=== PATIENT | male | born 1950 | race Caucasian/White ===

== ENCOUNTER 2017-05-12 18:02 | Emergency (ER) | payer OTHER ==
[~2017-05-12] VITALS: Ht 160 cm; Wt 95.3 kg
--- NOTE | ~2017-05-12 | EKG ---
[address] [address] ELECTROCARDIOGRAM REPORT Name: ELSI DIOR Room #: DEP [facility]#: [id number] Admission: 05/12/17 Attend Phys: Discharge: 05/12/17 Date of : 46 Report #: [id number] THIS REPORT FOR: //name// [facility] ED Test Date: 2017-05-12 Test Time: 18:04:34 Pat Name: ELSI DIOR Department: Room: Gender: M Audio Visual Secretary: [facility] : 1950 Requested By: Shailesh Donohue Order Number: [id number] MD: Faustino Luz Measurements Intervals [place] Rate: 87 P: SC: QRS: 27 QRSD: 93 T: 3 QT: 358 QTc: 431 Interpretive Statements Atrial fibrillation Otherwise no significant abnormality No previous ECG available for comparison Electronically Signed On 05-13-2017 8:31:04 SUB ASSEMBLY TEAM WORKER by Faustino Luz [email or web address] <ELECTRONICALLY SIGNED> By: Faustino Luz MD, [facility] 05/13/17 0831 1804 1804 Faustino Luz MD, FAC /EPI
[2017-05-12] MEDS ORDERED: PRINIVIL20 M1 PO (18:18)
[2017-05-12] MEDS ORDERED: COUMADIN 5 MG TA5 M1 PO (18:18)
[2017-05-12] MEDS ORDERED: [UNRECOGNIZED DRUG - OTHER] (18:20)
[2017-05-12] MEDS ORDERED: CARDIA (18:20)
[2017-05-12 19:14] LABS: ABSOLUTE NEUTROPHILS 4.8 thou/uL (1.4-8.2); BASOPHILS 0.6 % (0.0-2.0); EOSINOPHILS 0.8 % (0.0-3.0); HEMATOCRIT 43.5 % (42.0-52.0); HEMOGLOBIN 14.8 gm/dL (14.0-18.0); LYMPHOCYTES 20.6 % (24.0-44.0); MCH 31.6 pg (26.0-34.0); MCHC 33.9 g/dL (28.0-37.0); MCV 93.1 fL (80.0-100.0); MONOCYTES 5.6 % (1.0-8.0); PLATELET COUNT 267 thou/uL (150-400); POLYS 72.4 % (36.0-66.0); RBC 4.67 mil/uL (4.50-6.00); RDW 14.6 % (10.5-14.5); WBC 6.7 thou/uL (4.0-11.0)
[2017-05-12 19:21] LABS: ANION GAP 13 mmol/L (7-16); BUN 12 mg/dL (7-18); CALCIUM 8.4 mg/dL (8.5-10.1); CHLORIDE 95 mmol/L (98-107); CO2 21 mmol/L (21-32); CREATININE 0.7 mg/dL (0.7-1.3); GLUCOSE 93 mg/dL (74-106); POTASSIUM 3.9 mmol/L (3.5-5.1); SODIUM 129 mmol/L (136-145)
[2017-05-12 19:23] LABS: URINE BILIRUBIN NEGATIVE (Negative); URINE BLOOD NEGATIVE (Negative); URINE CLARITY CLEAR; URINE COLOR YELLOW; URINE GLUCOSE-RANDOM* NEGATIVE (Negative); URINE KETONES NEGATIVE (Negative); URINE LEUKOCYTES-REFLEX NEGATIVE (Negative); URINE NITRITE-REFLEX NEGATIVE (Negative); URINE PROTEIN (DIPSTICK) NEGATIVE (Negative); URINE SPECIFIC GRAVITY <= 1.005 (1.005-1.035); URINE UROBILINOGEN 0.2 E.U./dl (0.2-1.0)
[2017-05-12 19:29] LABS: TROPONIN-I < 0.04 ng/mL (<0.06)
== END 2017-05-12 21:06 | disposition home or self-care (01) ==
LOC: ER 18:02
PROVIDERS: Emergency Medicine
DX: E86.0 Dehydration (principal); R53.1 Weakness

== ENCOUNTER 2019-04-13 10:26 | Inpatient (IN) | payer OTHER ==
[~2019-04-13] VITALS: Ht 160 cm; Wt 81.2 kg
[~2019-04-13 10:26] MED LIST: CARDIA; COUMADIN 5 MG TA5 M1 PO; PRINIVIL20 M1 PO; [UNRECOGNIZED DRUG - OTHER]
[2019-04-13 10:38] VITALS: BP 122/56
[2019-04-13 11:06] LABS: ABSOLUTE NEUTROPHILS 8.6 thou/uL (1.4-8.2); BASOPHILS 0.5 % (0.0-2.0); EOSINOPHILS 0.2 % (0.0-3.0); HEMATOCRIT 45.6 % (42.0-52.0); HEMOGLOBIN 15.6 gm/dL (14.0-18.0); LYMPHOCYTES 8.5 % (24.0-44.0); MCH 32.5 pg (26.0-34.0); MCHC 34.3 g/dL (28.0-37.0); MCV 94.8 fL (80.0-100.0); PLATELET COUNT 346 thou/uL (150-400); POLYS 83.8 % (36.0-66.0); RBC 4.81 mil/uL (4.50-6.00); WBC 10.3 thou/uL (4.0-11.0)
[2019-04-13] MEDS ORDERED: FUROSEMIDE 40 M40 MG PO (11:10)
[2019-04-13] MEDS ORDERED: FISH OIL 1,0001 EAC9 PO (11:10)
[2019-04-13] MEDS ORDERED: KLOR-CON M2020 MEQ PO (11:10)
[2019-04-13] MEDS ORDERED: LIPITOR80 MG PO (11:11)
[2019-04-13] MEDS ORDERED: COUMADIN 5 MG TA5 M1 PO (11:11)
[2019-04-13] MEDS ORDERED: DILTIAZEM ER180 M2 PO (11:11)
[2019-04-13 11:13] LABS: ANION GAP 13 mmol/L (7-16); BUN 9 mg/dL (7-18); CALCIUM 9.4 mg/dL (8.5-10.1); CHLORIDE 96 mmol/L (98-107); CO2 25 mmol/L (21-32); CREATININE 0.9 mg/dL (0.7-1.3); GLUCOSE 106 mg/dL (74-106); POTASSIUM 4.3 mmol/L (3.5-5.1); SODIUM 134 mmol/L (136-145)
[2019-04-13 11:22] LABS: MAGNESIUM 1.9 mg/dL (1.8-2.4); TROPONIN-I <0.06 ng/mL (<0.06)
[2019-04-13 11:25] LABS: APTT 29.2 Seconds (24.5-32.8); INR 1.1; PROTIME 11.1 Seconds (9.3-11.4)
--- NOTE | 2019-04-13 12:34 | EKG ---
[address] [place] [address] ELECTROCARDIOGRAM REPORT Name: ELSI DIOR Room #: REG [facility]#: [id number] Admission: 04/13/19 Attend Phys: Discharge: Date of : 46 Report #: [id number] THIS REPORT FOR: //name// [facility] ED Test Date: 2019-04-13 Test Time: 10:55:12 Pat Name: ELSI DIOR Department: Room: Gender: Hand [facility] 1950 Requested By: Jessenia Rubi Order Number: [id number] MD: Markus Jimenez Measurements Intervals [place] Rate: 120 P: IN: QRS: 22 QRSD: 86 T: -8 QT: 321 QTc: 454 Interpretive Statements Atrial fibrillation Borderline T abnormalities, inferior leads Compared to ECG 05/12/2017 18:04:34 T-wave abnormality now present Electronically Signed On 04-13-2019 12:34:09 LIFE SUPPORT TECHNICIAN by Markus Jimenez [email or web address] <ELECTRONICALLY SIGNED> By: Markus Jimenez MD 04/13/19 1234 1055 54 Markus Jimenez MD /HOLLIS
--- NOTE | 2019-04-13 15:42 | 2DMMODE ---
[facility] [place] [employer] [address] 2 D/M-MODE ECHOCARDIOGRAM Name: ELSI DIOR Room #: 170-7 ADM IN ..#: [id number] Admission: 04/13/19 Attend Phys: Eric Sherman MD Discharge: Date of : 46 Report #: [id number] THIS REPORT FOR: //name// APPROVED REPORT Study performed: 04/13/2019 13:33:03 EXAM: Comprehensive 2D, Doppler, and color-flow Echocardiogram Patient Location: ER Room #: 7 Status: routine BSA: 1.99 HR: 99 bpm BP: 125/57 mmHg Rhythm: Atrial Fibrillation Other Information Study Quality: Good Indications Atrial Fibrillation Hypertension/HDD 2D Dimensions RVDd: 39.38 mm IVSd: 9.20 (7-11mm) LVOT Diam: 23.26 (18-24mm) LVDd: 54.03 mm PWd: 9.25 (7-11mm) Ascending Ao: 31.21 (22-36mm) LVDs: 33.18 (25-40mm) Aortic Root: 30.58 mm IVC: 13.00 mm Volumes Left Atrial Volume (Systole) Single Plane 4CH: 148.60 mL Single Plane 2CH: 78.55 mL LA ESV Index: 58.00 mL/m2 Aortic Valve AoV Peak Xander.: 1.22 m/s AO Peak Gr.: 5.93 mmHg LVOT Max P.55 mmHg LVOT Max V: 0.94 m/s HILDA Vmax: 3.29 cm2 Pulmonary Valve PV Peak Xander.: 1.02 m/s PV Peak Gr.: 4.22 mmHg [facility] [address] [place] [address] 2 D/M-MODE ECHOCARDIOGRAM Name: ELSI DIOR Room #: 170 ADM IN [facility]#: [id number] Admission: 04/13/19 Attend Phys: Eric Sherman MD Discharge: Date of : 46 Report #: [id number] Tricuspid Valve TR Peak Xander.: 2.40 m/s TR Peak Gr.: 23.12 mmHg PA Pressure: 28.00 mmHg Left Ventricle The left ventricle is normal size. There is normal LV segmental wall motion. There is normal left ventricular wall thickness. The left ventricular systolic function is normal. The left ventricular ejection fraction is within the normal range. LVEF is 60-65%. This study is not technically sufficient to allow evaluation of the LV diastolic function due to atrial fibrillation. Right Ventricle The right ventricle is normal size. The right ventricular systolic function is normal. Atria Left atrium is dilated. Right atrium is dilated. Aortic Valve The aortic valve is normal in structure. No aortic regurgitation is present. There is no aortic valvular stenosis. Mitral Valve The mitral valve is normal in structure. Mild mitral regurgitation. No evidence of mitral valve stenosis. Tricuspid Valve The tricuspid valve is normal in structure. There is mild tricuspid regurgitation. Estimated PAP 28 mmHg. There is no pulmonary hypertension. Pulmonic Valve The pulmonary valve is normal in structure. There is no pulmonic valvular regurgitation. Great Vessels The aortic root is normal in size. IVC is normal in size and collapses >50% with inspiration. Pericardium There is no pericardial effusion. <Conclusion> The left ventricle is normal size. [facility] [address] [place] [address] 2 D/M-MODE ECHOCARDIOGRAM Name: ELSI DIOR MAT Room #: 170-7 ADM IN M.R.#: [id number] Admission: 04/13/19 Attend Phys: Eric Sherman MD Discharge: Date of : 46 Report #: [id number] LVEF is 60-65%. Left atrium is dilated. Right atrium is dilated. The aortic valve is normal in structure. The mitral valve is normal in structure. Mild mitral regurgitation. The tricuspid valve is normal in structure. There is mild tricuspid regurgitation. Estimated PAP 28 mmHg. There is no pulmonary hypertension. The pulmonary valve is normal in structure. There is no pericardial effusion. <ELECTRONICALLY SIGNED> By: Enrique Vega MD 04/13/19 1541 1541 1541 Enrique Vega MD /INF
--- NOTE | 2019-04-13 16:17 | NUR ---
1ST ATTEMPT TO CALL REPORT UNSUCCESSFUL.
--- NOTE | 2019-04-13 17:38 | NUR ---
PT IS ALERT AND ORIENTED X4. LUNGS ARE CLEAR AFIB ON THE MONITOR PT ADMIT FROM EMERGECNCY ROOM. DR. CRUZ SEEN PT CARDIOLOGY THIS EVENING. WILL START ON CARDIZEM DRIP. ABDOMEN IS ROUND AND BOWEL SOUNDS ACTIVE. PT REPORTS HE DRINKS 3-4 BEERS EVERY DAY. NEVER FEELING THE NEED TO CUT DOWN ON HIS DRINKING. FALL BRACELET ON PT. YELLOW SOCKS ON . REPORTS HAVING FALLS AT HOME AND WEAKNESS INSTRUCTED NOT TO GET UP UNLESS ASSISTANCE
[2019-04-13 19:38] VITALS: BP 133/80
[2019-04-14 00:15] VITALS: BP 141/64
[2019-04-14 04:45] VITALS: BP 143/79
--- NOTE | 2019-04-14 05:44 | NUR ---
ASSUMED PT CARE [id number]. PT IS ALERT AND ORIENTED WITH NO SIGN OF DISTRESS NOTED IN PT. FALL PRECAUTION IN PLACE. ASSESSMENT COMPLETED AND DOCUMENTED. SCHEDULED MEDS ADMINISTERED TO PT. DENIES ANY PAIN. PT IS STABLE THROUGHOUT THE NIGHT. DENIES ANY FURTHER NEEDS AT THIS TIME.
[2019-04-14 05:54] LABS: HEMATOCRIT 44.2 % (42.0-52.0); HEMOGLOBIN 14.6 gm/dL (14.0-18.0); MCH 32.2 pg (26.0-34.0); MCHC 33.1 g/dL (28.0-37.0); MCV 97.5 fL (80.0-100.0); RBC 4.53 mil/uL (4.50-6.00); RDW 14.2 % (10.5-14.5); WBC 9.1 thou/uL (4.0-11.0)
[2019-04-14 06:07] LABS: CREATININE 0.7 mg/dL (0.7-1.3); POTASSIUM 3.8 mmol/L (3.5-5.1)
[2019-04-14 07:22] VITALS: BP 136/71
[2019-04-14 08:40] LABS: CHOLESTEROL 166 mg/dL (<200); HDL CHOLESTEROL 29 mg/dL (>40); LDL CHOLESTEROL 113 mg/dL (<100); TC:HDL 5.7 Ratio (Not establshd); TRIGLYCERIDE 124 mg/dL (<150); VLDL 25 mg/dL (<40)
[2019-04-14 12:40] VITALS: BP 96/47
[2019-04-14 16:20] VITALS: BP 121/56
--- NOTE | 2019-04-14 18:18 | NUR ---
ASSUMED CARE 0700, ALERT X4, SCIATICA BACK PAIN MANAGED WITH MEDS AND PHYICAL THERAPY EXERCISES. UP TO BEDSIDE COMMODE WITH SMALL BM TODAY. ADMISSION STATUS CHANGED TO IMPATIENT. CONTROLLED AFIB ON TELE. CALL LIGHT IN REACH.
[2019-04-14 19:40] VITALS: BP 107/41
[2019-04-15 04:41] VITALS: BP 150/58
[2019-04-15 04:55] LABS: CALCIUM 8.4 mg/dL (8.5-10.1); CREATININE 0.6 mg/dL (0.7-1.3); INR 1.2; POTASSIUM 3.8 mmol/L (3.5-5.1); PROTIME 12.8 Seconds (9.3-11.4)
--- NOTE | 2019-04-15 05:17 | NUR ---
ASSUMED PT CARE AT 1900. PT IS ALERT AND ORIENTED WITH NO SIGN OF DISTRESS NOTED. FALL PRECAUTION IN PLACE. ASSESSMENT COMPLETED AND DOCUMENTED. PT IS STABLE. DENIES ANY PAIN. SCHEDULED MEDS ADMINISTERED TO PT. PT TOLERATED PO INTAKE. DENIES ANY FURTHER NEEDS AT THIS TIME.
[2019-04-15 05:38] LABS: HEMOGLOBIN 13.8 gm/dL (14.0-18.0); MCH 32.2 pg (26.0-34.0); MCV 97.8 fL (80.0-100.0); RBC 4.29 mil/uL (4.50-6.00); WBC 8.3 thou/uL (4.0-11.0)
[2019-04-15 07:43] VITALS: BP 132/75
[2019-04-15 12:07] VITALS: BP 129/40
[2019-04-15] MEDS ORDERED: PRINIVIL20 M1 PO (13:46)
[2019-04-15] MEDS ORDERED: COUMADIN 5 MG TA5 M1 PO (13:46)
[2019-04-15] MEDS ORDERED: LIPITOR80 MG PO (13:46)
[2019-04-15] MEDS ORDERED: DILTIAZEM ER180 M2 PO (13:46)
[2019-04-15 13:48] VITALS: BP 129/40
[2019-04-15] MEDS ORDERED: TRAMADOL 50 MG50 MG PO ×2 (13:48→13:49)
--- NOTE | 2019-04-15 13:56 | NUR ---
Pt dcing home today per the care team. He was seen by therapy d/t back pain and mobility issues. They have recommended that the pt use a rwalker at home. Metal Treater visited with him at bedside and he reports that he is normally indep with gait, adl's, and driving. He has two sets of steps with landing up to this apt door. He declined us ordering a rwalker for him and indicates that his nebor has one he can use. The pt lives alone and has support per friends/neighbors. His pcp is Dr Wooten. He may be interested in outpt therapy. He will f/u with his pcp at vt. He denies any concerns about caring for himself at home. Encouragement given to f/u with his pcp within a week. He reports his friend can transport him home today.
--- NOTE | 2019-04-15 14:20 | NUR ---
ASSUMED CARE 0700. VSS, ALERT X4, PAIN MANAGED WITH MEDICATIONS, THERAPY ROUNDED WITH FOLLOW UP ON SCIATIC EXERCISES AND WALKER USE. NEW ORDER FOR TRAMADOL FOR PAIN. PT TO DISCHARGE HOME WITH SELF CARE. REVIEWED DC PAPERS, IV REMOVED, CONTROLED AFIB AND MONITOR NOW REMOVED FOR DISCHARGE.
== END 2019-04-15 15:51 | disposition home or self-care (01) | DRG 310 ==
LOC: ER 10:26 → EROBS 13:05 → 2N 13:05 → ENTRNSPT 04-15 15:43 → EDTRNSPTSTS 04-15 15:44 → 2N 04-15 15:51
PROVIDERS: Emergency Medicine Emergency Medical Services; Nurse Practitioner; ADMIT Hospitalist
DX: I48.19 Other persistent atrial fibrillation (principal); I48.0 Paroxysmal atrial fibrillation; I10 Essential (primary) hypertension; E78.5 Hyperlipidemia, unspecified; F17.210 Nicotine dependence, cigarettes, uncomplicated; M54.30 Sciatica, unspecified side; G89.29 Other chronic pain; M54.9 Dorsalgia, unspecified; Z82.49 Family history of ischemic heart disease and other diseases of the circulatory system; Z86.73 Personal history of transient ischemic attack (TIA), and cerebral infarction without residual deficits; Z88.0 Allergy status to penicillin; Z91.19 Patient's noncompliance with other medical treatment and regimen
CPT/HCPCS: 10081

== ENCOUNTER → 2019-11-01 | Outpatient (CLI) | payer OTHER ==
[~2019-11-01] MED LIST changes: +DILTIAZEM ER180 M2 PO; +FISH OIL 1,0001 EAC9 PO; +FUROSEMIDE 40 M40 MG PO; +KLOR-CON M2020 MEQ PO; +LIPITOR80 MG PO; +TRAMADOL 50 MG50 MG PO
== END ==
LOC: SJCVC 09:38
PROVIDERS: ATTEND Internal Medicine
DX: R94.31 Abnormal electrocardiogram [ECG] [EKG] (principal); R94.39 Abnormal result of other cardiovascular function study; I10 Essential (primary) hypertension; E78.00 Pure hypercholesterolemia, unspecified; R60.9 Edema, unspecified

== ENCOUNTER → 2020-05-07 | Outpatient (CLI) | payer OTHER | LOC: SJCVC 11:19 | PROVIDERS: ATTEND Internal Medicine | DX: R94.31 Abnormal electrocardiogram [ECG] [EKG] (principal); I48.19 Other persistent atrial fibrillation; I10 Essential (primary) hypertension; E78.5 Hyperlipidemia, unspecified; M54.32 Sciatica, left side; Z79.899 Other long term (current) drug therapy; Z88.0 Allergy status to penicillin ==